=== PATIENT | male | born 1960 | race Caucasian/White ===

== ENCOUNTER 2018-03-08 00:23 | Emergency (ER) | payer MEDICAID ==
[~2018-03-08] VITALS: Ht 172.7 cm; Wt 67.6 kg
[2018-03-08] MEDS ORDERED: ONDANSETRON ODT 4 MG PO ONE (01:30)
[2018-03-08] MEDS ORDERED: ONDANSETRON ODT 4 MG ONE (01:43)
[2018-03-08 01:58] LABS: BASOPHILS # (AUTO) 0.08 x10^3/uL (0-0.1); BASOPHILS % (AUTO) 1 % (0-1); EOSINOPHILS % (AUTO) 0 % (1-7); LYMPHOCYTES # (AUTO) 0.49 x10^3/uL (1-3.4); LYMPHOCYTES % (AUTO) 4 % (22-44); MD NO; MEAN CORPUSCULAR HEMOGLOBIN 28.5 pg (27.5-34.5); MEAN CORPUSCULAR HGB CONC 34.3 g/dL (33.2-36.2); MEAN CORPUSCULAR VOLUME 83.1 fL (81-97); MEAN PLATELET VOLUME 10.4 fL (7.4-10.4); MONOCYTES # (AUTO) 0.38 x10^3/uL (0.2-0.8); MONOCYTES % (AUTO) 3 % (2-9); NEUTROPHILS % (AUTO) 92 % (42-75); PLATELET COUNT 147 x10^3/uL (130-400); RED BLOOD COUNT 4.66 x10^6/uL (4.38-5.82); RED CELL DISTRIBUTION WIDTH 13.4 % (9.4-14.8)
[2018-03-08] MEDS ORDERED: PLEASE ENTER ALLERGIES MC SCH (02:00)
[2018-03-08 02:03] LABS: MICROSCOPIC AUTO
[2018-03-08 02:04] LABS: CULTURE INDICATED? NO
[2018-03-08 02:06] LABS: ALANINE AMINOTRANSFERASE 24 U/L (12-78); ALBUMIN 3.7 g/dL (3.4-5.0); ANION GAP 11 mmol/L (5-15); CALCIUM 9.1 mg/dL (8.5-10.1); CHLORIDE 96 mmol/L (98-107); CREATININE 1.72 mg/dL (0.7-1.3)
[2018-03-08 02:08] LABS: ALKALINE PHOSPHATASE 211 U/L (45-117); BILIRUBIN,TOTAL 1.2 mg/dL (0.2-1.0); TOTAL PROTEIN 7.4 g/dL (6.4-8.2)
[2018-03-08] MEDS ORDERED: PROMETHAZINE 25 MG/ML, 1ML ONE (02:21)
[2018-03-08 02:24] LABS: ACETONE, SERUM Small (20mg/dL) mg/dL (Negative)
[2018-03-08] MEDS ORDERED: PROMETHAZINE 25 MG/ML, 1ML IM ONE (02:30)
[2018-03-08 03:46] VITALS: BP 122/71
== END 2018-03-08 04:35 | disposition home or self-care (01) ==
LOC: ED 04:29
DX: R11.2 Nausea with vomiting, unspecified (principal); E11.65 Type 2 diabetes mellitus with hyperglycemia; E11.21 Type 2 diabetes mellitus with diabetic nephropathy; E11.22 Type 2 diabetes mellitus with diabetic chronic kidney disease; N18.9 Chronic kidney disease, unspecified
CPT/HCPCS: 36415; 80053; 81001; 82010; 82962; 83690; 85025; 96372; 99284; J2550; Q0162